=== PATIENT | male | born 1950 | race Caucasian/White ===

== ENCOUNTER 2016-11-07 22:01 | Inpatient (IN) | payer MEDICARE, OTHER ==
[~2016-11-07] VITALS: Ht 190.5 cm; Wt 121.3 kg
[~2016-11-07 22:01] MED LIST: 00186-0370-20 IH; ALBUTEROL0.83 MG/ML IH; AMOXICILLIN/CLA1 TA1 PO; ASPIRIN 32325 MG/TAB PO; ASPIRIN 81M81 MG/TA2 PO; BIAXIN FILMTAB500 MG PO; BROVANA15 MCG/2 M IH; CARDIZEM 30MG T30 MG PO; CEPHALEXIN500 M1 PO; COMBIVENT INH14.7 GM IH; COREG 25MG25 MG/TAB PO; COREG 6.256.25 MG/TA PO; COREG12.5 MG PO; COREG25 MG PO; COUMADIN4 MG PO; DIGITEK0.25 MG PO; DULERA1 AR1 IH; DUONEB 3 MG/3 ML3 ML IH; FISH OIL CONC1000 MG PO; GLUCOPHAGE500 MG/TAB PO; GLUCOTROL 5M5 MG/TAB PO; IBUPROFEN800 MG PO; IPRATROPIUM BROM3 M1 IH; K-DUR 10 MEQ T10 MEQ PO; LASIX 40MG TABL40 MG PO; LASIX20 MG PO; LIPITOR 10MG10 MG PO; MEXITIL 150MG150 MG PO; MULTIVITAMIN1 TA1 PO; NYSTATIN OR100 MU/ML PO; PERFOROMIS20 MCG/2 M IH; PREDNISONE10 MG PO; PREDNISONE20 MG PO; PRINIVIL20 MG PO; PROAIR IH; PULMICORT0.5 MG/2 M IH; SINGULAIR 110 MG/TAB PO; SINGULAIR10 MG PO; SPIRIVA HANDIH18 MCG IH; SPIRIVA18 MCG IH; SYMBICORT1 AE1 IH; TESSALON PERLE200 MG PO; TIKOSYN0.125 MG PO; TYLENOL #3 301 UDTAB PO; VASOTEC 2.2.5 MG/TAB PO; VENTOLIN0.09 MG IH; VICTOZA INJ; VICTOZA6 MG/ML SQ; ZOCOR 20MG20 MG PO; ZOCOR20 MG PO
[2016-11-08] VITALS (454 sets, daily range): BP systolic 90–105; BP diastolic 57–77; PULSE 82–104; TEMP 96.6–98.2; O2SAT 87–100
[2016-11-08 02:53] LABS: BASO % 0.2 % (0.0-2.0); EOS # 0.1 (0.0-0.7); EOS % 0.6 % (0-4.0); GRAN # 13.4 (1.4-6.5); GRAN % 87.5 % (42.2-75.2); HEMATOCRIT 35.9 % (42.0-52.0); LYMPH # 0.7 (1.2-3.4); LYMPH % 4.3 % (20.0-51.0); MEAN CELL VOLUME 79 fl (80.0-100.0); MEAN CORPUSCULAR HEMOGLOBIN 27 pg (27.0-31.0); MEAN CORPUSCULAR HGB CONC 33 g/dl (33.0-37.0); MEAN PLATELET VOLUME 9.5 fl (7.4-10.4); MONO % 6.5 % (1.7-9.3); PLATELET COUNT 147 K/mm3 (130-400); RED BLOOD COUNT 4.53 M/mm3 (4.20-5.60); REDCELL DISTRIBUTION WIDTH-CV 21.1 % (11.5-14.5); WHITE BLOOD COUNT 15.3 K/mm3 (4.8-10.8)
[2016-11-08 03:02] LABS: ADJUSTED CALCIUM 9.1 mg/dL (8.4-10.2); ALBUMIN 3.1 gm/dL (3.5-5.0); BILIRUBIN,TOTAL 1.8 mg/dL (0.0-1.0); CALCIUM 8.4 mg/dL (8.4-10.2); CREATININE, serum 1.17 mg/dL (0.66-1.25); MAGNESIUM 1.7 mg/dL (1.6-2.3); POTASSIUM 3.1 mmol/L (3.4-5.0); TOTAL PROTEIN 5.8 gm/dL (6.4-8.2)
[2016-11-08] MEDS ORDERED: ALDACTONE50 MG PO (05:27)
[2016-11-08 07:35] LABS: PROTHROMBIN TIME 39.4 SECONDS (9.7-12.8)
[2016-11-08 07:40] LABS: INR 3.4 (0.8-3.0)
[2016-11-09 02:35] VITALS: BP 90/60; PULSE 86; TEMP 98.2
[2016-11-09 07:51] LABS: PROTHROMBIN TIME 41.4 SECONDS (9.7-12.8)
[2016-11-09 07:52] LABS: BASO % 0.4 % (0.0-2.0); EOS # 0.5 (0.0-0.7); EOS % 5.7 % (0-4.0); GRAN # 7.5 (1.4-6.5); LYMPH # 0.6 (1.2-3.4); LYMPH % 6.1 % (20.0-51.0); MEAN CELL VOLUME 81 fl (80.0-100.0); MEAN CORPUSCULAR HGB CONC 33 g/dl (33.0-37.0); MEAN PLATELET VOLUME 10.1 fl (7.4-10.4); MONO # 0.7 (0.1-0.6); MONO % 7.3 % (1.7-9.3); PLATELET COUNT 161 K/mm3 (130-400); RED BLOOD COUNT 4.28 M/mm3 (4.20-5.60); WHITE BLOOD COUNT 9.4 K/mm3 (4.8-10.8)
[2016-11-09 08:02] LABS: INR 3.6 (0.8-3.0)
[2016-11-09 08:10] LABS: CALCIUM 8.3 mg/dL (8.4-10.2); CREATININE, serum 1.04 mg/dL (0.66-1.25)
[2016-11-09 08:35] VITALS: BP 98/46; PULSE 80; TEMP 97.4
[2016-11-09 08:38] LABS: HEMATOCRIT 34.5 % (42.0-52.0); HEMOGLOBIN 11.3 g/dl (13.5-18.0); MEAN CORPUSCULAR HEMOGLOBIN 26 pg (27.0-31.0)
[2016-11-09 08:39] LABS: REDCELL DISTRIBUTION WIDTH-CV 21.1 % (11.5-14.5)
[2016-11-09 12:54] VITALS: BP 90/57; PULSE 87; TEMP 97.6
[2016-11-09 14:52] LABS: HYALINE CAST >12 /lpf; PH 7 (5-8); SQUAMOUS EPITHELIAL 0-2 /hpf; URINE APPEARANCE Hazy; URINE BACTERIA Rare /hpf; URINE BILIRUBIN Negative (NEGATIVE); URINE BLOOD 3+ (NEGATIVE); URINE COLOR Yellow; URINE GLUCOSE Negative (NEGATIVE); URINE KETONE Negative (NEGATIVE); URINE RBC >50 /hpf; URINE UROBILINOGEN >=4.0 mg/dL (NEGATIVE); URINE WBC >50 /hpf
[2016-11-09 16:52] VITALS: BP 98/65; PULSE 85; TEMP 97.8
[2016-11-09 19:38] VITALS: PULSE 94; TEMP 98
[2016-11-09 23:03] VITALS: BP 90/60; PULSE 87; TEMP 98
[2016-11-10 04:22] VITALS: BP 94/58; PULSE 86; TEMP 98.1
[2016-11-10 06:51] LABS: CALCIUM 8.5 mg/dL (8.4-10.2); CREATININE, serum 1.09 mg/dL (0.66-1.25); MAGNESIUM 2.1 mg/dL (1.6-2.3); POTASSIUM 4.4 mmol/L (3.4-5.0)
[2016-11-10 06:56] LABS: INR 4.2 (0.8-3.0); PROTHROMBIN TIME 49.1 SECONDS (9.7-12.8)
[2016-11-10 07:37] VITALS: BP 94/61; PULSE 94; TEMP 98.6
[2016-11-10 11:15] VITALS: BP 89/61; PULSE 72; TEMP 98.8
[2016-11-10 15:32] VITALS: BP 95/57; PULSE 88; TEMP 97.9
[2016-11-10 19:46] VITALS: BP 80/61; PULSE 87; TEMP 98
[2016-11-10 23:22] VITALS: BP 95/64; PULSE 82; TEMP 97.5
[2016-11-11 03:26] VITALS: BP 99/65; PULSE 80; TEMP 98.2
[2016-11-11 07:12] LABS: MEAN CELL VOLUME 83 fl (80.0-100.0); MEAN CORPUSCULAR HGB CONC 33 g/dl (33.0-37.0); MEAN PLATELET VOLUME 9.2 fl (7.4-10.4); PLATELET COUNT 164 K/mm3 (130-400); RED BLOOD COUNT 4.35 M/mm3 (4.20-5.60); REDCELL DISTRIBUTION WIDTH-CV 21.5 % (11.5-14.5)
[2016-11-11 07:15] LABS: HEMATOCRIT 35.9 % (42.0-52.0); HEMOGLOBIN 11.7 g/dl (13.5-18.0); MEAN CORPUSCULAR HEMOGLOBIN 27 pg (27.0-31.0)
[2016-11-11 07:23] LABS: INR 4.7 (0.8-3.0); PROTHROMBIN TIME 54.6 SECONDS (9.7-12.8)
[2016-11-11 07:30] LABS: ADJUSTED CALCIUM 9.4 mg/dL (8.4-10.2); ALBUMIN 2.7 gm/dL (3.5-5.0); BILIRUBIN,TOTAL 1.7 mg/dL (0.0-1.0); CALCIUM 8.4 mg/dL (8.4-10.2); CREATININE, serum 1.01 mg/dL (0.66-1.25); MAGNESIUM 2.1 mg/dL (1.6-2.3); POTASSIUM 4.2 mmol/L (3.4-5.0); TOTAL PROTEIN 5.3 gm/dL (6.4-8.2)
[2016-11-11 07:56] VITALS: BP 95/64; PULSE 85; TEMP 97.9
[2016-11-11 12:15] VITALS: BP 97/66; PULSE 83; TEMP 97.7
[2016-11-11 17:28] VITALS: BP 96/66; PULSE 85; TEMP 98
[2016-11-11 19:56] VITALS: BP 88/60; PULSE 81; TEMP 98.7
[2016-11-11 23:31] VITALS: BP 85/50; PULSE 74; TEMP 98.7
[2016-11-12 03:26] VITALS: BP 106/73; PULSE 63; TEMP 98.3
[2016-11-12 07:57] LABS: MEAN CELL VOLUME 83 fl (80.0-100.0); MEAN CORPUSCULAR HGB CONC 32 g/dl (33.0-37.0); MEAN PLATELET VOLUME 9.4 fl (7.4-10.4); PLATELET COUNT 168 K/mm3 (130-400); RED BLOOD COUNT 4.25 M/mm3 (4.20-5.60); REDCELL DISTRIBUTION WIDTH-CV 21.9 % (11.5-14.5); WHITE BLOOD COUNT 9.8 K/mm3 (4.8-10.8)
[2016-11-12 07:58] LABS: HEMATOCRIT 35.2 % (42.0-52.0); HEMOGLOBIN 11.3 g/dl (13.5-18.0); MEAN CORPUSCULAR HEMOGLOBIN 27 pg (27.0-31.0)
[2016-11-12 08:14] LABS: PROTHROMBIN TIME 45.7 SECONDS (9.7-12.8)
[2016-11-12 08:19] LABS: ADJUSTED CALCIUM 9.6 mg/dL (8.4-10.2); ALBUMIN 2.5 gm/dL (3.5-5.0); BILIRUBIN,TOTAL 1.9 mg/dL (0.0-1.0); CALCIUM 8.4 mg/dL (8.4-10.2); CREATININE, serum 1.13 mg/dL (0.66-1.25); MAGNESIUM 1.8 mg/dL (1.6-2.3); POTASSIUM 3.9 mmol/L (3.4-5.0); TOTAL PROTEIN 5.4 gm/dL (6.4-8.2)
[2016-11-12 08:29] VITALS: BP 91/51; PULSE 80; TEMP 97.8
[2016-11-12 11:53] VITALS: BP 86/59; PULSE 70; TEMP 97.9
[2016-11-12] MEDS ORDERED: FERROUS SU325 MG/TAB PO ×2 (15:08→18:38)
[2016-11-12] MEDS ORDERED: LASIX 40MG TABL40 MG PO ×2 (15:08→18:38)
[2016-11-12] MEDS ORDERED: ULTRAM 50MG TAB50 MG PO ×2 (15:09→18:38)
[2016-11-12] MEDS ORDERED: NORCO 325 MG-51 TAB PO ×2 (15:09→18:38)
[2016-11-12] MEDS ORDERED: KLOR-CON M2020 MEQ PO (15:17)
== END 2016-11-12 16:59 | disposition home or self-care (01) | DRG 292 ==
LOC: IMCU 22:01 → MEDICAL 23:45 → ICU 23:45 → MEDICAL 11-08 14:09
PROVIDERS: Internal Medicine; Internal Medicine Cardiovascular Disease; Nurse Practitioner Family
DX: I50.23 Acute on chronic systolic (congestive) heart failure (principal); E87.1 Hypo-osmolality and hyponatremia; E44.1 Mild protein-calorie malnutrition; J44.9 Chronic obstructive pulmonary disease, unspecified; E87.6 Hypokalemia; D63.1 Anemia in chronic kidney disease; N18.9 Chronic kidney disease, unspecified; I25.10 Atherosclerotic heart disease of native coronary artery without angina pectoris; E11.9 Type 2 diabetes mellitus without complications; M54.5 Low back pain; I25.5 Ischemic cardiomyopathy; Z95.2 Presence of prosthetic heart valve; Z79.01 Long term (current) use of anticoagulants; I48.91 Unspecified atrial fibrillation; Z95.1 Presence of aortocoronary bypass graft; Z95.0 Presence of cardiac pacemaker; Z87.891 Personal history of nicotine dependence; W18.30XA Fall on same level, unspecified, initial encounter
CPT/HCPCS: 99223-AI; 99232-AI; 99233-AI; 99239; J1160; J1940; J2405; J3475